=== PATIENT | male | born 1985 | race Caucasian/White ===

== ENCOUNTER 2021-08-30 01:27 | Emergency (ER) | payer SELFPAY ==
--- NOTE | 2021-08-30 01:38 | ED ---
General Adult HPI - General Stated complaint: Covid Test, [place] Time Seen by Provider: 08/30/21 01:32 - History of Present Illness Initial comments: Patient presents to the emergency department today for COVID-19 testing in order to cross border into [place]. Denies any current symptoms or recent exposures. Patient denies need for further medical screening or examination. - Related Data Home Medications Medication Instructions Recorded Confirmed No Known Home Medications 08/30/21 08/30/21 Allergies Allergy/AdvReac Type Severity Reaction Status Date / Time No Known Allergies Allergy Verified 08/30/21 01:44 Review of Systems ROS Statement: Those systems with pertinent positive or pertinent negative responses have been documented in the HPI. ROS Other: All systems not noted in ROS Statement are negative. General Exam General appearance: alert, in no apparent distress Neurological exam: Present: alert, oriented X3 Psychiatric exam: Present: normal affect, normal mood Skin exam: Present: warm, dry, normal color. Absent: rash Course Vital Signs 08/30/21 01:42 Temperature 97.7 F Pulse Rate 95 Respiratory 18 Rate Blood Pressure 140/83 O2 Sat by Pulse 96 Oximetry Medical Decision Making - Medical Decision Making Patient presented for COVID-19 testing in order to cross border into [place]. Did not have any symptoms. Declined any need for further exam or screening. Test results were negative. Patient was given copy of result and discharged. My attending is Dr. Walker. Disposition Clinical Impression: Encounter for laboratory testing for COVID-19 virus Disposition: HOME SELF-CARE Condition: Good Instructions (If sedation given, give patient instructions): Coronavirus Disease 2019 (COVID-19) Is patient prescribed a controlled substance at d/c from ED?: No Referrals: None,Stated [Primary Care Provider] - 1-2 days Time of Disposition: 01:38
[2021-08-30 01:44] VITALS: BP 140/83; PULSE 95; RESP 18; TEMP 97.7
== END 2021-08-30 02:45 | disposition home or self-care (01) ==
LOC: EC 01:27
DX: Z20.822 Contact with and (suspected) exposure to COVID-19 (principal)
CPT/HCPCS: 87635; 99282